=== PATIENT | male | born 1950 | race Caucasian/White ===

== ENCOUNTER 2022-04-13 15:29 | Outpatient (CLI) | payer MEDICARE | END 2022-04-13 15:30 | disposition home or self-care (01) | LOC: CSHRAD 15:29 | PROVIDERS: ATTEND Specialist | DX: M54.2 Cervicalgia (principal); M47.812 Spondylosis without myelopathy or radiculopathy, cervical region | CPT/HCPCS: 72040 ==

== ENCOUNTER 2022-05-08 09:13 | Outpatient (CLI) | payer MEDICARE | END 2022-05-08 09:14 | disposition home or self-care (01) | LOC: CSHMRI 09:13 | PROVIDERS: ATTEND Specialist | DX: M54.2 Cervicalgia (principal); M47.812 Spondylosis without myelopathy or radiculopathy, cervical region; M25.48 Effusion, other site | CPT/HCPCS: 72141 ==

== ENCOUNTER 2022-08-09 08:30 | Outpatient (CLI) | payer MEDICARE ==
[2022-08-09 09:16] LABS: Hemoglobin 14.6 g/dL (13.5-17.5)
[2022-08-09 09:34] LABS: Anion Gap 13 mmol/L (10-20); BUN (Urea Nitrogen) 16 mg/dL (8.4-25.7); Calc. Creatinine Clearance 0 mL/min (70-130); Calcium 9.4 mg/dL (7.8-10.44); Carbon Dioxide 25 mmol/L (23-31); Chloride 103 mmol/L (98-107); Estimated GFR 78; Glucose 96 mg/dL (83-110); Potassium 4.3 mmol/L (3.5-5.1); Sodium 137 mmol/L (136-145)
== END 2022-08-09 08:31 | disposition home or self-care (01) ==
LOC: CSHLAB 08:30
PROVIDERS: ATTEND Otolaryngology Plastic Surgery within the Head & Neck
DX: Z01.818 Encounter for other preprocedural examination (principal); R49.0 Dysphonia; K21.9 Gastro-esophageal reflux disease without esophagitis; J38.3 Other diseases of vocal cords
CPT/HCPCS: 80048; 85014; 85018; 93005; 93010

== ENCOUNTER 2024-08-01 12:31 | Outpatient (CLI) | payer MEDICARE ==
[2024-08-01] MEDS ORDERED: Magnevist 469MG/ML 20 ML VIAL ONE (13:10)
== END 2024-08-01 12:32 | disposition home or self-care (01) ==
LOC: CSHMRI 12:31
PROVIDERS: ATTEND Specialist
DX: C61 Malignant neoplasm of prostate (principal); I25.10 Atherosclerotic heart disease of native coronary artery without angina pectoris; N40.2 Nodular prostate without lower urinary tract symptoms
CPT/HCPCS: 36415; 72197; 82565; 93880